=== PATIENT | female | born 1955 | race Native Hawaiian/Other Pacific Islander ===

== ENCOUNTER → 2016-07-30 | Outpatient (CLI) | payer OTHER ==
[~2016-07-30] MED LIST: ALEVE 220MG220 MG PO; ASPIRIN E.C. 8181 MG PO; BACTRIM DS 8001 TAB PO; CELEBREX 200MG200 MG PO; CEPHALEXIN500 M1 PO; CLARITIN 1010 MG/TAB PO; GLUCOPHAGE500 MG/TAB PO; LORTAB 5/500 501 TAB PO; MEVACOR10 MG PO; TRADJENTA5 MG PO; TYLENOL 325MG325 MG PO; ZESTRIL 5MG5 MG PO
== END ==
LOC: COL.RAD 15:32
DX: M71.22 Synovial cyst of popliteal space [Baker], left knee (principal); M25.461 Effusion, right knee

== ENCOUNTER 2017-01-27 10:22 | Inpatient (IN) | payer BC ==
[~2017-01-27] VITALS: Ht 157.5 cm; Wt 97.9 kg
[~2017-01-27 10:22] MED LIST changes: -ASPIRIN E.C. 8181 MG PO; -CELEBREX 200MG200 MG PO; -CLARITIN 1010 MG/TAB PO; -GLUCOPHAGE500 MG/TAB PO; -MEVACOR10 MG PO; -TRADJENTA5 MG PO; -ZESTRIL 5MG5 MG PO
[2017-02-25 12:02] LABS: HIV 1/2 Antibodies Non-Reactive; HIV-1p24 Antigen Non-Reactive
[2017-03-08] VITALS (11 sets, daily range): BP systolic 129–157; BP diastolic 70–87; PULSE 66–84; TEMP 97.6–98.5
[2017-03-08] MEDS ORDERED: TRADJENTA5 MG PO (06:07)
[2017-03-08] MEDS ORDERED: CLARITIN 1010 MG/TAB PO (06:07)
[2017-03-08] MEDS ORDERED: GLUCOPHAGE500 MG/TAB PO (06:07)
[2017-03-08] MEDS ORDERED: MEVACOR10 MG PO (06:08)
[2017-03-08] MEDS ORDERED: ZESTRIL 5MG5 MG PO (06:08)
[2017-03-08] MEDS ORDERED: ASPIRIN E.C. 8181 MG PO (06:08)
[2017-03-08] MEDS ORDERED: CELEBREX 200MG200 MG PO (06:09)
[2017-03-09 02:26] VITALS: BP 131/70; PULSE 69; TEMP 98.4
[2017-03-09 05:58] VITALS: BP 136/80; PULSE 66; TEMP 97.5
[2017-03-09 07:48] LABS: HEMATOCRIT 36.6 % (37.0-47.0); HEMOGLOBIN 12.1 g/dl (12.5-16.0)
[2017-03-09 17:22] VITALS: BP 145/73; PULSE 84; TEMP 98.2
[2017-03-09 21:07] VITALS: BP 158/89; PULSE 79; TEMP 98.5
[2017-03-10 05:06] VITALS: BP 153/91; PULSE 92; TEMP 98.6
[2017-03-10 05:14] VITALS: BP 153/91; PULSE 92; TEMP 98.6
[2017-03-10 07:47] LABS: HEMATOCRIT 38.5 % (37.0-47.0); HEMOGLOBIN 13.1 g/dl (12.5-16.0)
[2017-03-10 07:58] VITALS: BP 155/80; PULSE 82; TEMP 98.1
[2017-03-10 11:45] VITALS: BP 143/87; PULSE 92; TEMP 97.9
== END 2017-03-10 14:10 | disposition home or self-care (01) | DRG 470 ==
LOC: SURG 03-08 05:10 → JCC 03-08 07:30 → SURG 03-10 14:10
PROVIDERS: Orthopaedic Surgery
PROC: 0SRC0J9 Replacement of Right Knee Joint with Synthetic Substitute, Cemented, Open Approach (ICD-10-PCS; principal; 2017-03-08 07:30)
DX: M17.11 Unilateral primary osteoarthritis, right knee (principal)
CPT/HCPCS: A4315; A9284; C1713; C1776; J1100; J2250; J2405; J2704; J3370; J7030; J7050

== ENCOUNTER → 2017-02-25 | Outpatient (CLI) | payer BC ==
[~2017-02-25] MED LIST changes: +ASPIRIN E.C. 8181 MG PO; +CELEBREX 200MG200 MG PO; +CLARITIN 1010 MG/TAB PO; +GLUCOPHAGE500 MG/TAB PO; +MEVACOR10 MG PO; +TRADJENTA5 MG PO; +ZESTRIL 5MG5 MG PO
== END ==
LOC: COL.RAD 07-23 12:00 → COL.LAB 10:29
DX: Z01.812 Encounter for preprocedural laboratory examination (principal); M25.561 Pain in right knee

== ENCOUNTER → 2017-03-04 | Outpatient (CLI) | payer BC ==
[2017-03-04 12:11] LABS: BASO % 0.5 % (0.0-2.0); EOS # 0.3 (0.0-0.7); EOS % 4.1 % (0-4.0); GRAN # 4.5 (1.4-6.5); GRAN % 61.3 % (42.2-75.2); HEMOGLOBIN 14.1 g/dl (12.5-16.0); LYMPH # 2.1 (1.2-3.4); LYMPH % 28.4 % (20.0-51.0); MEAN CELL VOLUME 92 fl (80.0-100.0); MEAN CORPUSCULAR HEMOGLOBIN 32 pg (27.0-31.0); MEAN CORPUSCULAR HGB CONC 34 g/dl (33.0-37.0); MEAN PLATELET VOLUME 9.8 fl (7.4-10.4); MONO # 0.4 (0.1-0.6); MONO % 5.3 % (1.7-9.3); PLATELET COUNT 268 K/mm3 (130-400); RED BLOOD COUNT 4.47 M/mm3 (4.10-5.30); REDCELL DISTRIBUTION WIDTH-CV 11.7 % (11.5-14.5); WHITE BLOOD COUNT 7.4 K/mm3 (4.8-10.8)
[2017-03-04 12:13] LABS: PROTHROMBIN TIME 10.7 SECONDS (9.7-12.8)
[2017-03-04 12:24] LABS: ADJUSTED CALCIUM 9.2 mg/dL (8.4-10.2); ALBUMIN 4.2 gm/dL (3.5-5.0); BILIRUBIN,TOTAL 0.5 mg/dL (0.0-1.0); CALCIUM 9.4 mg/dL (8.4-10.2); CREATININE, serum 0.52 mg/dL (0.52-1.25); POTASSIUM 4.2 mmol/L (3.4-5.0); TOTAL PROTEIN 7.9 gm/dL (6.4-8.2)
== END ==
LOC: COL.RAD 11:42
PROVIDERS: Registered Nurse
DX: Z01.818 Encounter for other preprocedural examination (principal); E11.9 Type 2 diabetes mellitus without complications; I10 Essential (primary) hypertension

== ENCOUNTER 2017-04-21 07:12 | Day surgery (SDC) | payer BC ==
[~2017-04-21] VITALS: Ht 162.6 cm; Wt 87.9 kg
[2017-04-21 07:58] VITALS: BP 137/82; PULSE 80; TEMP 97.8
[2017-04-21 10:35] VITALS: BP 122/77; PULSE 74
[2017-04-21 10:50] VITALS: BP 145/84; PULSE 72
[2017-04-21] MEDS ORDERED: NORCO 325 MG-7.1 TAB PO (11:12)
[2017-04-21 11:20] VITALS: BP 132/74; PULSE 68
== END 2017-04-21 11:42 | disposition home or self-care (01) ==
LOC: SDCO 07:12
DX: M25.661 Stiffness of right knee, not elsewhere classified (principal); Z79.84 Long term (current) use of oral hypoglycemic drugs; Z96.651 Presence of right artificial knee joint; I10 Essential (primary) hypertension; E11.9 Type 2 diabetes mellitus without complications
CPT/HCPCS: J1100; J1885; J2270; J2704; J7030

== ENCOUNTER 2017-05-04 17:10 | Emergency (ER) | payer BC ==
[~2017-05-04] VITALS: Ht 157.5 cm; Wt 83.6 kg
[~2017-05-04 17:10] MED LIST changes: +NORCO 325 MG-7.1 TAB PO
[2017-05-04 17:11] VITALS: TEMP 97.9
[2017-05-04 17:58] LABS: COLLECTION METHOD CLEAN CATCH
[2017-05-04] MEDS ORDERED: GLUCOPHAGE500 MG/TAB PO (18:10)
[2017-05-04 18:30] LABS: BASO % 0.5 % (0.0-2.0); EOS # 0.1 (0.0-0.7); EOS % 1.9 % (0-4.0); GRAN % 62.6 % (42.2-75.2); HEMATOCRIT 39.7 % (37.0-47.0); HEMOGLOBIN 13.1 g/dl (12.5-16.0); LYMPH # 1.7 (1.2-3.4); MEAN CELL VOLUME 88 fl (80.0-100.0); MEAN CORPUSCULAR HEMOGLOBIN 29 pg (27.0-31.0); MEAN CORPUSCULAR HGB CONC 33 g/dl (33.0-37.0); MEAN PLATELET VOLUME 10.2 fl (7.4-10.4); MONO # 0.5 (0.1-0.6); MONO % 7.7 % (1.7-9.3); PLATELET COUNT 280 K/mm3 (130-400); RED BLOOD COUNT 4.49 M/mm3 (4.10-5.30); WHITE BLOOD COUNT 6.4 K/mm3 (4.8-10.8)
[2017-05-04 18:34] LABS: MUCOUS Present /lpf; PH 6 (5-8); URINE APPEARANCE Clear; URINE BACTERIA None Seen /hpf; URINE BILIRUBIN Negative (NEGATIVE); URINE BLOOD Negative (NEGATIVE); URINE COLOR Yellow; URINE GLUCOSE 2+ (NEGATIVE); URINE KETONE Negative (NEGATIVE); URINE LEUKOCYTE ESTERASE Negative (NEGATIVE); URINE PROTEIN(semi-quant) Negative (NEGATIVE); URINE RBC 0-2 /hpf; URINE WBC 0-2 /hpf
[2017-05-04 18:43] LABS: LIPASE 120 U/L (23-300)
[2017-05-04 18:45] LABS: ADJUSTED CALCIUM 9.5 mg/dL (8.4-10.2); BILIRUBIN,TOTAL 0.4 mg/dL (0.0-1.0); CALCIUM 9.5 mg/dL (8.4-10.2); CREATININE, serum 0.65 mg/dL (0.52-1.25); TOTAL PROTEIN 8.2 gm/dL (6.4-8.2)
[2017-05-04 18:56] LABS: TROPONIN-I < 0.012 ng/mL (0.000-0.034)
[2017-05-04] MEDS ORDERED: ZOFRAN 4MG T4 MG/TAB PO (19:19)
[2017-05-04 19:31] VITALS: BP 143/89; PULSE 80
== END 2017-05-04 19:33 | disposition home or self-care (01) ==
LOC: COL.ER 17:10
PROVIDERS: Emergency Medicine
DX: E11.649 Type 2 diabetes mellitus with hypoglycemia without coma (principal); G89.18 Other acute postprocedural pain; R11.0 Nausea; I10 Essential (primary) hypertension; E78.00 Pure hypercholesterolemia, unspecified; Z79.82 Long term (current) use of aspirin; Z79.84 Long term (current) use of oral hypoglycemic drugs; Z96.651 Presence of right artificial knee joint
CPT/HCPCS: J2405; J7030

== ENCOUNTER → 2017-07-13 | Outpatient (CLI) | payer BC ==
[~2017-07-13] MED LIST changes: +ZOFRAN 4MG T4 MG/TAB PO
[2017-07-13 14:25] LABS: CHOLESTEROL RISK RATIO 4.4
== END ==
LOC: COL.LAB 10:32
PROVIDERS: Family Medicine
DX: Z13.220 Encounter for screening for lipoid disorders (principal)

== ENCOUNTER → 2017-08-15 | Outpatient (CLI) | payer BC | LOC: SUN.DIA 08:20 | DX: E11.40 Type 2 diabetes mellitus with diabetic neuropathy, unspecified (principal); E66.9 Obesity, unspecified; Z68.35 Body mass index [BMI] 35.0-35.9, adult; Z71.3 Dietary counseling and surveillance; Z87.891 Personal history of nicotine dependence | CPT/HCPCS: G0108 ==

== ENCOUNTER 2017-11-19 13:15 | Emergency (ER) | payer BC ==
[~2017-11-19] VITALS: Ht 160 cm; Wt 88.2 kg
[2017-11-19 13:17] VITALS: BP 155/72; PULSE 83; TEMP 98.9
[2017-11-19] MEDS ORDERED: FLEXERIL 1010 MG/TAB PO (13:45)
== END 2017-11-19 13:52 | disposition home or self-care (01) ==
LOC: COL.ER 13:15
DX: M62.830 Muscle spasm of back (principal); E11.9 Type 2 diabetes mellitus without complications; Z79.84 Long term (current) use of oral hypoglycemic drugs; Z79.82 Long term (current) use of aspirin; Z98.890 Other specified postprocedural states

== ENCOUNTER → 2018-04-19 | Outpatient (CLI) | payer BC ==
[~2018-04-19] MED LIST changes: +FLEXERIL 1010 MG/TAB PO
[2018-04-19 16:41] LABS: URINE PROTEIN:CREAT RATIO 0.1 (0.00-0.14)
== END ==
LOC: SUN.DIA
PROVIDERS: Family Medicine
DX: E11.40 Type 2 diabetes mellitus with diabetic neuropathy, unspecified (principal); E66.9 Obesity, unspecified

== ENCOUNTER 2018-11-25 07:50 | Emergency (ER) | payer BC ==
[~2018-11-25] VITALS: Ht 157.5 cm; Wt 86.4 kg
[2018-11-25 08:06] VITALS: TEMP 99.2
[2018-11-25] MEDS ORDERED: LIPITOR20 MG PO (08:07)
[2018-11-25] MEDS ORDERED: PRINIVIL10 MG PO (08:07)
[2018-11-25 08:20] LABS: BASO # 0.1 (0.0-0.2); BASO % 0.5 % (0.0-2.0); EOS # 0.7 (0.0-0.7); EOS % 4.3 % (0-4.0); GRAN # 12.4 (1.4-6.5); GRAN % 81.4 % (42.2-75.2); HEMATOCRIT 40.1 % (37.0-47.0); HEMOGLOBIN 13.6 g/dl (12.5-16.0); LYMPH # 1.3 (1.2-3.4); LYMPH % 8.5 % (20.0-51.0); MEAN CELL VOLUME 91 fl (80.0-100.0); MEAN CORPUSCULAR HEMOGLOBIN 31 pg (27.0-31.0); MEAN CORPUSCULAR HGB CONC 34 g/dl (33.0-37.0); MEAN PLATELET VOLUME 9.7 fl (7.4-10.4); MONO # 0.7 (0.1-0.6); MONO % 4.8 % (1.7-9.3); PLATELET COUNT 243 K/mm3 (130-400); RED BLOOD COUNT 4.39 M/mm3 (4.10-5.30); REDCELL DISTRIBUTION WIDTH-CV 11.8 % (11.5-14.5)
[2018-11-25 08:23] LABS: STREP SCREEN POSITIVE
[2018-11-25 08:32] LABS: ALBUMIN 3.9 gm/dL (3.5-5.0); BILIRUBIN,TOTAL 0.4 mg/dL (0.0-1.0); C-REACTIVE PROTEIN 5.4 mg/dL (0.0-0.9); CALCIUM 9.2 mg/dL (8.4-10.2); CREATININE, serum 0.58 (0.52-1.25); POTASSIUM 4.4 mmol/L (3.4-5.0); TOTAL PROTEIN 7.9 gm/dL (6.4-8.2)
[2018-11-25 08:37] LABS: COLLECTION METHOD CATHETER
[2018-11-25 08:50] LABS: MUCOUS Present /lpf; PH 7 (5-8); SQUAMOUS EPITHELIAL 0-2 /hpf; URINE APPEARANCE Clear; URINE BACTERIA None Seen /hpf; URINE BILIRUBIN Negative (NEGATIVE); URINE BLOOD Negative (NEGATIVE); URINE COLOR Yellow; URINE GLUCOSE 3+ (NEGATIVE); URINE KETONE Negative (NEGATIVE); URINE LEUKOCYTE ESTERASE Negative (NEGATIVE); URINE NITRATE Negative (NEGATIVE); URINE PROTEIN(semi-quant) Negative (NEGATIVE); URINE RBC 0-2 /hpf; URINE UROBILINOGEN Negative (NEGATIVE)
[2018-11-25 09:30] VITALS: BP 122/66; PULSE 80
[2018-11-25] MEDS ORDERED: OMNICEF 300MG300 MG PO (09:33)
== END 2018-11-25 10:06 | disposition home or self-care (01) ==
LOC: COL.ER 07:50
PROVIDERS: Emergency Medicine
DX: J02.0 Streptococcal pharyngitis (principal); I10 Essential (primary) hypertension; E11.9 Type 2 diabetes mellitus without complications; Z79.82 Long term (current) use of aspirin; Z79.84 Long term (current) use of oral hypoglycemic drugs
CPT/HCPCS: J1885; J2405; J7030

== ENCOUNTER 2019-06-11 11:41 | Emergency (ER) | payer BC ==
[~2019-06-11] VITALS: Ht 157.5 cm; Wt 88.6 kg
[~2019-06-11 11:41] MED LIST changes: +LIPITOR20 MG PO; +OMNICEF 300MG300 MG PO; +PRINIVIL10 MG PO
[2019-06-11 11:44] VITALS: TEMP 97.3
[2019-06-11] MEDS ORDERED: ALEVE 220MG220 MG PO (11:53)
[2019-06-11] MEDS ORDERED: TRULICITY0.75 MG/0. SQ (11:55)
[2019-06-11] MEDS ORDERED: NORCO 325 MG-51 TAB PO (12:13)
[2019-06-11 12:23] VITALS: BP 157/93; PULSE 77
== END 2019-06-11 12:20 | disposition home or self-care (01) ==
LOC: COL.ER 11:41
DX: M79.651 Pain in right thigh (principal); M54.31 Sciatica, right side; Z79.82 Long term (current) use of aspirin; Z79.84 Long term (current) use of oral hypoglycemic drugs